=== PATIENT | male | born 2000 | race Caucasian/White ===

== ENCOUNTER 2020-08-02 13:10 | Emergency (ER) | payer OTHER ==
[2020-08-02] MEDS ORDERED: Acetaminophen 325 MG Tab PO ONE (14:09)
--- NOTE | 2020-08-02 16:15 | MR ---
MRI brain Technique: T1 sagittal; T2, T2 FLAIR, T1 and diffusion axial; T1 FLAIR coronal images were obtained. T2 gradient echo axial and coronal images were also obtained. Comparison: No prior intracranial imaging is available. Findings: Ventricles along with basal cisterns and sulci over the convexities appear within normal limits for the patient's age. No abnormal signal is seen within the brain parenchyma. No midline shift or mass-effect is seen. No acute diffusion abnormalities are seen. Normal signal void is seen within the major cerebral arteries within the skull base. Visualized paranasal sinuses and mastoid sinuses show nothing acute. Impression: 1. Nothing acute is identified on MRI study of the brain. Diagnostic code #1
--- NOTE | 2020-08-02 16:41 | EDM.PDOC ---
ED HPI GENERAL MEDICAL PROBLEM - General Chief Complaint: Headache Stated Complaint: HEADACHE/LT SIDE NUMBNESS Time Seen by Provider: 08/02/20 13:22 Source of Information: Reports: Patient, RN Notes Reviewed - History of Present Illness INITIAL COMMENTS - FREE TEXT/NARRATIVE: 19 yr old male with onset of pounding R frontal Combs a few hours ago. Has had L sided facial and LUE paresthesias with that that now are better but not completely resolved. He states he had a fairly severe combs about 2 weeks ago without paresthesias. Otherwise no hx of frequent severe headaches. Has not been otherwise ill. No speech difficulty. Headache Pain Score (Numeric/FACES): 8 - Related Data Allergies Allergy/AdvReac Type Severity Reaction Status Date / Time No Known Allergies Allergy Verified 08/02/20 13:21 Home Meds: Home Meds . [No Known Home Meds] 08/02/20 [History] Past Medical History Neurological History: Reports: Headaches, Chronic Endocrine/Metabolic History: Reports: Obesity/BMI 30+ - Past Surgical History HEENT Surgical History: Reports: Myringotomy w Tube(s) Social & Family History - Tobacco Use Tobacco Use Status *Q: Never Tobacco User - Caffeine Use Caffeine Use: Reports: Coffee - Recreational Drug Use Recreational Drug Use: No ED ROS GENERAL - Review of Systems Review Of Systems: See Below Constitutional: Denies: Fever, Chills HEENT: Denies: Sinus Problem, Throat Pain Respiratory: Denies: Shortness of Breath, Cough Cardiovascular: Denies: Chest Pain GI/Abdominal: Reports: Nausea. Denies: Abdominal Pain, Vomiting Musculoskeletal: Reports: No Symptoms Skin: Reports: No Symptoms Neurological: Reports: Headache, Numbness, Tingling. Denies: Trouble Speaking, Difficulty Walking - Physical Exam Exam: See Below General Appearance: Alert, No Apparent Distress Throat/Mouth: Normal Inspection Head Exam: Atraumatic Neck: Supple Respiratory/Chest: No Respiratory Distress, Lungs Clear, Normal Breath Sounds Cardiovascular: Regular Rate, Rhythm Neuro Exam (Abbreviated): Alert, Oriented, No Motor/Sensory Deficits, Other (no drift, finger to nose testing nl) Extremities: Normal Inspection, Normal Range of Motion Skin Exam: Warm, Dry, Normal Color Course - Vital Signs Last Recorded V/S: Last Vital Signs Temp 97 F 08/02/20 13:18 Pulse 59 L 08/02/20 13:18 Resp 16 08/02/20 13:18 BP 140/78 08/02/20 13:18 Pulse Ox 97 08/02/20 13:18 - Orders/Labs/Meds Meds: Medications Discontinued Medications Generic Name Dose Route Start Last Admin Trade Name Bernie PRN Reason Stop Dose Admin Acetaminophen 975 mg 08/02/20 14:09 08/02/20 14:21 Acetaminophen 325 Mg Tab PO 08/02/20 14:10 975 mg NOW ONE Administration - Re-Assessments/Exams Free Text/Narrative Re-Assessment/Exam: 08/02/20 16:48 Feeling better, MRI nl. Discharge instr. as documented. Departure - Departure Time of Disposition: 16:39 Disposition: Home, Self-Care 01 Condition: Fair Clinical Impression: Migraine - Discharge Information Referrals: PCP,None [Primary Care Provider] - Forms: ED Department Discharge Additional Instructions: Your MRI today is completely normal with no acute findings. Alternate tylenol and ibuprofen if needed for further headache. See one of our providers at our [facility] medical clinic in about 7 to 10 days for follow up appointment. Return to ED as needed if symptoms worsening in any way. Sepsis Event Note (ED) - Evaluation Sepsis Screening Result: No Definite Risk - Focused Exam Vital Signs: Vital Signs Temp Pulse Resp BP Pulse Ox 08/02/20 13:18 97 F 59 L 16 140/78 97
== END 2020-08-02 16:50 | disposition home or self-care (01) ==
LOC: JD.ED 13:10
DX: G43.909 Migraine, unspecified, not intractable, without status migrainosus (principal); E66.9 Obesity, unspecified; Z68.30 Body mass index [BMI] 30.0-30.9, adult
CPT/HCPCS: 70551; 99284; A9270; 99283

== ENCOUNTER 2024-01-11 22:57 | Emergency (ER) | payer OTHER ==
[2024-01-11] MEDS ORDERED: Sodium Chloride 0.9% 10 ML Syringe FLUSH PRN (23:44)
[2024-01-12 00:14] LABS: BASOPHILS ABSOLUTE AUTO 0.1 K/mm3 (0.0-0.2); EOSINOPHILS ABSOLUTE AUTO 0.2 K/mm3 (0.0-0.4); EOSINOPHILS PERCENT AUTO 2.8 % (0.0-6.0); HEMATOCRIT 44.4 % (42.0-52.0); IMMATURE GRAN ABSOLUTE AUTO 0.01 K/mm3 (0.00-0.05); IMMATURE GRAN PERCENT AUTO 0.2 % (0.0-0.4); LYMPHOCYTES ABSOLUTE AUTO 2.8 K/mm3 (1.0-4.8); LYMPHOCYTES PERCENT AUTO 44.7 % (24.0-44.0); MEAN CORPUSCULAR VOLUME 83.1 fl (83.0-99.0); MEAN PLATELET VOLUME 9.7 fl (9.4-12.4); MONOCYTES ABSOLUTE AUTO 0.6 K/mm3 (0.0-0.8); MONOCYTES PERCENT AUTO 9.7 % (0.0-8.0); NEUTROPHILS ABSOLUTE AUTO 2.6 K/mm3 (1.8-7.7); NEUTROPHILS PERCENT AUTO 41.6 % (41.0-71.0); PLATELET COUNT,PLT 245 K/mm3 (150-400); RED BLOOD CELL COUNT 5.34 M/mm3 (4.52-5.90); WHITE BLOOD CELL COUNT,WBC 6.18 K/mm3 (3.9-11.3)
[2024-01-12 00:34] LABS: A/G RATIO 1.4 (1-2); ALBUMIN 3.9 g/dl (3.4-5.0); BILIRUBIN TOTAL 0.4 mg/dL (0.2-1.0); BUN/CREATININE RATIO 9.2 (14-18); CALCIUM 9.2 mg/dL (8.5-10.1); CREATININE 1.2 mg/dL (0.7-1.3); EST CRCL DRUG DOSING (CG) 108.2 mL/min; MAGNESIUM 1.7 mg/dL (1.8-2.4); PROTEIN TOTAL,TP 6.6 g/dl (6.4-8.2)
== END 2024-01-12 01:36 | disposition home or self-care (01) ==
LOC: JD.ED 22:57
DX: T39.011A Poisoning by aspirin, accidental (unintentional), initial encounter (principal); Z79.82 Long term (current) use of aspirin; E66.9 Obesity, unspecified; Z68.33 Body mass index [BMI] 33.0-33.9, adult
CPT/HCPCS: 36415; 80053; 80143; 80179; 83735; 85025; 93005; 99283